=== PATIENT | female | born 1990 | race Caucasian/White ===

== ENCOUNTER 2020-07-14 05:51 | Emergency (ER) | payer SELFPAY ==
[~2020-07-14] VITALS: Ht 162.6 cm; Wt 54.4 kg
[2020-07-14 05:57] VITALS: Ht 162.6 cm; Wt 54.4 kg
[2020-07-14 06:29] LABS: CALC OSMOLALITY 281 mosm/kg (275-300); CALCIUM 8.3 mg/dL (8.5-10.1); CARBON DIOXIDE 27.6 mmol/L (21.0-32.0); CHLORIDE - SERUM 105 mmol/L (98-107); CREATININE - SERUM 0.7 mg/dL (0.6-1.3); POTASSIUM - SERUM 3.6 mmol/L (3.5-5.1); SODIUM 141 mmol/L (136-145); UREA NITROGEN 10 mg/dL (7-18); eGFR NON AFRICAN AMERICAN > 90 mL/min (90-120)
[2020-07-14 06:31] LABS: GLUCOSE 143 mg/dL (74-106)
[2020-07-14 06:36] LABS: BASOPHILS 0.5 % (0-2); EOSINOPHILS 1.6 % (0-7); HEMATOCRIT 40.6 % (36.0-48.0); HEMOGLOBIN 13.3 g/dL (12-16); IMMATURE GRANULOCYTES 0.2 % (0-5); LYMPHOCYTE ABS# 1.06 10x3/uL (1.18-3.74); LYMPHOCYTES 24.6 % (15-50); MCH 30.6 pg (26.0-34.0); MCHC 32.8 g/dL (31.0-37.0); MCV 93.3 fL (80.0-100.0); MEAN PLATELET VOLUME 10.9 fL (7.4-10.4); MONOCYTES 12.1 % (2-11); NEUTROPHIL ABS# 2.63 10x3/uL (1.56-6.13); PLATELET COUNT 230 10x3/uL (130-400); RBC 4.35 10x6/uL (4.00-5.40); RDW 14.5 % (11.5-14.5); WBC 4.3 10x3/uL (4.8-10.8)
[2020-07-14 06:37] LABS: HCG SERUM NEGATIVE (NEGATIVE)
[2020-07-14 06:39] LABS: ALBUMIN 3.1 g/dL (3.4-5.0); ALKALINE PHOSPHATASE 178 U/L (30-120); ALT (SGPT) 89 U/L (10-68); BILIRUBIN - TOTAL 0.37 mg/dL (0.2-1.3)
[2020-07-14] MEDS ORDERED: DOXYCYCLINE HY100 M2 PO (06:43)
[2020-07-14] MEDS ORDERED: HYDROCODON-ACE1 EAC7 PO (06:43)
[2020-07-14 06:47] LABS: KETONE NEGATIVE (NEGATIVE); NITRITE NEGATIVE (NEGATIVE)
[2020-07-14 06:48] LABS: BILIRUBIN NEGATIVE (NEGATIVE)
[2020-07-14 06:52] LABS: BACTERIA FEW HPF (NONE SEEN)
[2020-07-14 07:01] VITALS: BP 122/75
== END 2020-07-14 07:02 | disposition home or self-care (01) ==
LOC: D.ER 05:51
PROVIDERS: Emergency Medicine
DX: A55 Chlamydial lymphogranuloma (venereum) (principal)